=== PATIENT | male | born 1970 | race Caucasian/White ===

== ENCOUNTER 2025-02-16 11:07 | Emergency (ER) | payer SELFPAY | END 2025-02-16 13:20 | disposition home or self-care (01) | LOC: JD.ED 11:07 | DX: J18.9 Pneumonia, unspecified organism (principal); J45.909 Unspecified asthma, uncomplicated; F17.200 Nicotine dependence, unspecified, uncomplicated; Z79.899 Other long term (current) drug therapy; Z88.2 Allergy status to sulfonamides | CPT/HCPCS: 71045; 87428; 99285; Q0144; 99284; A9270-GY ==